=== PATIENT | female | born 1955 | race Caucasian/White ===

== ENCOUNTER 2016-09-07 12:11 | Emergency (ER) | payer OTHER ==
[~2016-09-07 12:11] MED LIST: ACETAMINOP160 MG/56 PO; ATORVASTATIN CA80 M1 PO; DILTIAZEM 24HR240 M1 PO; DILTIAZEM ER120 M1 PO; FOLIC ACID1 M1 PO; FUROSEMIDE20 M1 PO; KEPPRA500 MG/5 M IV; LEVOFLOXACIN500 M1 PO; LORAZEPAM2 MG/1 M1 IV; PREDNISONE10 M2 PO; PROTONIX40 M3 PO; UNASYN 3 GM VIAL3 GM IV
--- NOTE | 2016-09-07 12:25 | NUR ---
PT TO ED WITH FOR ? STROKE. STATES PT HAD STROKE IN MARCH 2016, WAS AT [place] AND THEN TRANSFERRED TO [facility]. PT DENIES ANY PAIN. PT STATES SHE NORMALLY WEARS NC 02 @ 2L. PT STATES "I'VE BEEN DOING OK OFF OF IT". WHEN ASKING PT HER , PT UNABLE TO COMPLETE IT. PT ALSO ASKED WHERE SHE IS, PT STATES "AT THE HOSPITAL NEAR HOME". NO FACIAL DROOP NOTED. HUBAND STATES HER STROKE WAS LEFT SIDED IN MARCH. PT TAKEN TO ROOM 22 VIA W/C.
--- NOTE | 2016-09-07 12:30 | NUR ---
THIS RN TO BEDSIDE WITH JESSICA ESTRADA. PT NOTED TO HAVE BLANK STARE AND NOT VERBALLY RESPONDING TO PROVIDER AT THIS TIME. PT HAD WITNESSED 30 SECOND SEIZURE. PT RESPONDING VERBALLY TO COMMANDS AFTER SEIZURE ENDED AND STATES "I FEEL BETTER NOW." DR. SAMUEL AT BEDSIDE FOR EVAL AT THIS TIME.
--- NOTE | 2016-09-07 12:35 | ED GENERAL ADULT ---
History of Present Illness General Chief Complaint: General Adult Stated Complaint: LOW O2, STROKE?? PER Source: patient, family, old records Exam Limitations: no limitations Allergies Coded Allergies: No Known Allergies (04/03/16) Triage Note: PT TO ED WITH FOR ? STROKE. STATES PT HAD STROKE IN MARCH 2016, WAS AT [place] AND THEN TRANSFERRED TO [facility]. PT DENIES ANY PAIN. PT STATES SHE NORMALLY WEARS NC 02 @ 2L. PT STATES "I'VE BEEN DOING OK OFF OF IT". WHEN ASKING PT HER , PT UNABLE TO COMPLETE IT. PT ALSO ASKED WHERE SHE IS, PT STATES "AT THE HOSPITAL NEAR HOME". NO FACIAL DROOP NOTED. ANGEL STATES HER STROKE WAS LEFT SIDED IN MARCH. PT TAKEN TO ROOM 22 VIA W/C. Triage Nurses Notes Reviewed? yes Onset: Just prior to arrival Duration: minute(s): (30) Timing: remote history Injury Environment: DRIVING Severity: moderate No Modifying Factors: none HPI: Patient is a 60-year-old female presenting to the emergency department with chief complaint of word finding difficulties that started approximately 30-45 minutes prior to arrival. Per family member they were driving in the car and he noticed that she was having word finding difficulties. She also noticed that she started fidgeting with her left arm. She had a stroke 5 months ago, was in rehabilitation for approximately one month and has been home. He reports that she has been progressing nicely. Ambulatory with little deficits on the left side from previous stroke. Patient and family report that she has had issues with vision on the left side but reports that it's been improving. Patient denying any malaise or weakness. Patient denying any symptoms at all. Denies any trouble breathing chest pain or palpitations. No change in medications. They have been weaning her off her seizure medications, only on Her now. She had seizures after the stroke 5 months ago. Denies any abdominal pain. (GAVIOTA ISAAC) Vital Signs & Intake/Output Vital Signs & Intake/Output Vital Signs Date Time Temp Pulse Resp B/P Pulse O2 O2 Flow FiO2 Ox Delivery Rate 09/07 1541 93 18 182/84 92 09/07 1351 95 Room Air Room Air 09/07 1315 82 18 167/90 97 Room Air 09/07 1250 96 18 155/77 95 Room Air 09/07 1220 97.1 70 20 144/80 95 Room Air Reconcile Medications Atorvastatin Calcium 80 MG TABLET 80 MG PO 1700 ischemic stroke via OG tube Levetiracetam 1,000 MG TABLET 1 TAB PO BID SEIZURES (Reported) Pantoprazole Sodium (Protonix) 40 MG TABLET. 40 MG PO DAILY GI prophylaxis (FRITZ MAE DO) Past History Travel History Traveled to [place] past 21 day No Medical History Any Pertinent Medical History? see below for history Neurological: CVA (with right-sided weakness), seizure EENT: NONE Cardiovascular: hypertension Respiratory: COPD, pneumonia Gastrointestinal: NONE Hepatic: NONE Renal: NONE Musculoskeletal: NONE Psychiatric: H/O ALCOHOL ABUSE Endocrine: NONE History of MRSA: No History of VRE: No History of CDIFF: No Influenza Vaccine: 03/18/16 Surgical History Surgical History: non-contributory Psychosocial History Who do you live with Spouse Services at Home Oxygen What is your primary language Scottish Tobacco Use: Quit >30 days ago ETOH Use: denies use Illicit Drug Use: denies illicit drug use Family History Family History, If Any: grandmother (maternal grand mother: lung cancer). Relation not specified for: FH: lung cancer Hx Contributory? Yes (GAVIOTA ISAAC) Review of Systems Review of Systems Constitutional: Reports: no symptoms. Comments Review of systems: See HPI, All other systems negative. Constitutional, no chills fever or weight loss HEENT: no sore throat no congestion Cardiovascular: No chest pain ,palpitation , orthopnea or ankle swelling Skin, no jaundice no rashes Respiratory: No dyspnea cough sputum or hemoptysis GI: No nausea no vomiting : No dysuria No hematuria Muscle skeletal: no back pain, no neck pain, Neurologic: No increased numbness Psych: No stress anxiety or depression,. Heme/endocrine: No bruising no bleeding no polyuria or polydipsia Immunology: No splenectomy or history of AIDS (GAVIOTA ISAAC) Physical Exam Physical Exam General Appearance: well developed/nourished, no apparent distress, alert, awake , comfortable, AVOIDING USE OF LEFT SIDE. Comments: Well-developed well-nourished person in no acute distress HEENT: Extraocular eye movement exam is somewhat limited as patient cannot follow commands well, moves her head. Pupils equally round and reactive to light and accommodation. Nose is atraumatic. External auditory canal and Tympanic membranes clear. Pharynx normal. No swelling or edema. Left-sided facial droop present. Difficulty sticking out her tongue. Neck: Supple, no lymphadenopathy Back: Nontender Cardiovascular: Regular rate and rhythms no murmurs rubs or gallops, normal JVP Respiratory: Chest nontender. No respiratory distress.breath sounds clear to auscultation bilaterally Abdomen: Soft, nontender nondistended, no appreciable organomegaly. Normal bowel sounds. No ascites and no rebound or guarding Rectal: Nontender, guaiac-negative, brown stool. Extremity: Nonpitting pitting edema in the lower shins bilaterally, discoloration of bluish purple color to larks and is bilaterally, no calf tenderness to palpation, normal and equal pulses. Neuro: Alert oriented x3, motor and sensory deficits noted on the left upper extremity, left side of the face. Left-sided facial droop present. Able to lift left leg with some weakness as it hits the bed after a few seconds. Skin: No appreciable rash on exposed skin, skin is warm and dry. Psych: Mood and affect is normal, memory and judgment is normal. Core Measures ACS in differential dx? Yes CVA/TIA Diagnosis: Yes Severe Sepsis Present: No Septic Shock Present: No (SEAN LOPEZ,GAVIOTA) Progress Differential Diagnoses I considered the following diagnoses in my evaluation of the patient: CVA, TIA, dehydration, electrolyte abnormality, UTI, pneumonia, hypoglycemia, hyperglycemia Plan of Care: Orders Procedure Date/time Status Nothing by Mouth 09/07 D Active Admit to inpatient 09/07 1521 Active Vital Signs 09/07 1521 Active Code Status 09/07 1521 Active Patient Data 09/07 1444 Active Intake & Output 09/07 1351 Active Telemetry/Heavy Threader 09/07 1237 Active FingerStick- Glucose 09/07 1237 Active NIH Stroke Scale 09/07 1230 Active TROPONIN LEVEL 09/07 1230 Complete PARTIAL THROMBOPLASTIN TIME 09/07 1230 Complete PROTHROMBIN TIME 09/07 1230 Complete COMPREHENSIVE METABOLIC PANEL 09/07 1230 Complete CBC WITHOUT DIFFERENTIAL 09/07 1230 Complete EKG 09/07 1230 Active Laboratory Tests 09/07/16 1612: CBC w Diff NO MAN DIFF REQ, RBC 4.12 L, MCV 94.4, MCH 31.1 H, RDW 11.9, MPV 8.8, Gran % 69.8, Lymphocytes % 24.0, Monocytes % 5.0, Eosinophils % 1.0, Basophils % 0.2, Absolute Granulocytes 4.9, Absolute Lymphocytes 1.7, Absolute Monocytes 0.4, Absolute Eosinophils 0.1, Absolute Basophils 0, PUBS MCHC 33.0 09/07/16 1308: Anion Gap 14, Estimated GFR > 60, BUN/Creatinine Ratio 23.8, Glucose 108 H, Calcium 10.3 H, Total Bilirubin 0.7, AST 26, ALT 35, Alkaline Phosphatase 107, Troponin I < 0.01, Total Protein 7.4, Albumin 4.4, Globulin 3.0, Albumin/ Globulin Ratio 1.5, PT 11.3, INR 1.08, APTT 26 Diagnostic Imaging: Viewed by Me: Radiology Read, CT Scan. Discussed w/RAD: Radiology Read, CT Scan. Radiology Impression: PATIENT: TAE GREEN PRESENT AGE: 60 PATIENT ACCOUNT NO: [id number] : 56 LOCATION: [facility] ORDERING PHYSICIAN: GAVIOTA LOPEZ SERVICE DATE: 09/07/16 EXAM TYPE: CAT - CT HEAD WO IV CONTRAST EXAMINATION: CT HEAD WITHOUT CONTRAST CLINICAL INFORMATION: Deficits. Rule out CVA. COMPARISON: 04/03/2016. TECHNIQUE: Contiguous axial imaging was performed from the skull base to vertex without intravenous contrast. DLP: 601 mGy-cm. FINDINGS: There is new hypoattenuation with loss of caicedo to white matter differentiation involving the high right parietal lobe. Additional hypoattenuation along the right frontal lobe may be artifactual. No evidence of acute intracranial hemorrhage. No abnormal mass effect or midline shift is seen. No extra-axial fluid collections are identified. No dense vessel sign. No hydrocephalus. Proportional prominence of the ventricles and sulcal spaces is consistent with mild volume loss. Patchy periventricular and deep white matter hypoattenuation is consistent with moderate small vessel ischemic changes. Chronic right caudate head lacunar infarct with ex vacuo dilatation of the right lateral ventricle frontal horn. The osseous structures and soft tissues are normal. The mastoid air cells and visualized portions of the paranasal sinuses are well aerated. IMPRESSION: New loss of caicedo to white matter differentiation at the high right parietal lobe suspicious for an infarct. Underlying moderate small vessel ischemic changes with areas of chronic lacunar infarcts. Hypoattenuation along the right frontal lobe anteriorly may be artifactual. This critical result was discussed with Dr. Mae by telephone at 09/07/2016 1:05 PM and it was ascertained that the content and urgency of the report was understood at the time of direct communication. CXR Impression: PATIENT: TAE GREEN PRESENT AGE: 60 PATIENT ACCOUNT NO: [id number] : 56 LOCATION: [facility] ORDERING PHYSICIAN: GAVIOTA LOPEZ SERVICE DATE: 09/07/16 EXAM TYPE: RAD - XRY-PORTABLE CHEST XRAY EXAMINATION: XR PORTABLE CHEST CLINICAL INFORMATION: Cardiomegaly COMPARISON: 04/04/2016 TECHNIQUE: Portable AP 80 degree upright view of the chest was obtained. FINDINGS: Since the previous study, patient has been extubated. There is mild cardiac enlargement but no evidence of CHF. Aorta is ectatic. No infiltrates, effusions or lung masses are seen. IMPRESSION: No acute intrathoracic disease. Cardiomegaly. DICTATED BY: SOPHIE CARRANZA MD DATE/ TIME DICTATED:09/07/161328 STOCK DIGGER:COLIN DATE/TIME TRANSCRIBED: 09/07/161328 Initial ED EKG: VENTRICULAR BIGEMINY Prior EKG: changed Comments: 09/07/2016 12:42:19 PM\\arrival patient is alert and oriented 3, she does have left-sided deficits including left facial droop and left arm weakness. Unable to raise the left arm. Unable to manager competitive intelligence the left arm. This is new according to family members and that just started well I was in the exam room with the patient. According to family members patient is not on any blood thinners and never was. 09/07/2016 1:16:[address] shows acute infarct in the high right parietal area. Dr. Mae spoke with neurology who agrees that this patient is a TPA candidate. Family members and patient educated on risks and benefits of receiving TPA. They understand and are aware of potential bleeding side effects, hesitant to go through with it. Waiting to hear back from their neurologist. 09/07/2016 2:27:42 PM patient declining TPA at this time. Patient will have a PICC line placed. Given aspirin. Swallow study is unremarkable, positive gag reflex. No choking. Patient will be admitted for CVA. Aspirin administered. 09/07/2016 4:12:08 PM patient will be transferred to [facility] for potentially endarterectomy or other early intervention for CVA AT PT REQUEST. DR MAE SPOKE WITH Y AXIS. (GAVIOTA ISAAC) Differential Diagnoses I considered the following diagnoses in my evaluation of the patient: (JIMMIE LARA,FRITZ Holt) Departure Departure Time of Disposition: 1603 Disposition: OTHER GENERAL HOSPITAL (ACUTE) Condition: Stable Clinical Impression Primary Impression: Cerebrovascular accident Qualifiers: CVA mechanism: unspecified Qualified Code: I63.9 - Cerebral infarction, unspecified Referrals: ENIO MENESES MD (PCP/Family) Departure Forms: Customer Survey General Discharge Information Admission Note Spoke With: ZEN COLLINS MD Documentation of Exam: Documentation of any treatments & extenuating circumstances including Concerns Regarding Discharge (functional status, medication knowledge or non-compliance, living conditions, etc.) that warrant an admission rather than observation: Patient requiring TPA at this time. Patient will be placed on telemetry for CVA. Aspirin regimen, neurology consultation. Discharge at this time would be medically harmful. (GAVIOTA ISAAC) Departure Comments 09/07/16 3:58 pm The patient expressed a desire to go [place] has her records are there for further care. I discussed the case with Dr Epperson at [place] and he accepted the patient for transfer to [place]. He reviewed the records and informed me that the patient has a history of lymphoma and has had residual left-sided weakness. I spoke to the ER doctor at [place] and the patient is for transfer. Admission Note Documentation of Exam: Documentation of any treatments & extenuating circumstances including Concerns Regarding Discharge (functional status, medication knowledge or non-compliance, living conditions, etc.) that warrant an admission rather than observation: PA/TEAM LEADER/RESEARCH PSYCHOLOGIST Co-Sign Statement Statement: ED Attending supervision documentation- [X] I saw and evaluated the patient. I have also reviewed all the pertinent lab results and diagnostic results. I agree with the findings and the plan of care as documented in the PA's/TEAM LEADER/RESEARCH PSYCHOLOGIST's documentation. [] I have reviewed the ED Record and agree with the PA's/TEAM LEADER/RESEARCH PSYCHOLOGIST's documentation. [] Additions or exceptions (if any) to the PAs/TEAM LEADER/RESEARCH PSYCHOLOGIST's note and plan are summarized below: [] 09/07/16 2:32 PM I have seen and personally examined the patient and I agree with the PAs evaluation. I have assumed care of the patient. She is a 60-year-old female who presented with a sudden onset of severe left sided weakness and left facial droop. This happened 45 minutes prior to arrival. CT scan showed a acute infarct. I discussed with the neurologist Dr. Victoria about TPA and this was advised. I discussed the risks and benefits of TPA with the patient. She does not wish to receive the TPA at this time because of the risk of possible intracranial bleeding. She is directed to be treated with aspirin. Her left upper extremity weakness is improving. I did review the risks and benefits, multiple times both with the family and with the patient. Shared decision- making was utilized in the care of this patient. They asked that I speak with the neurologist who took care for her to [place] when she had a prior stroke. I did speak to the PA that works with Dr. Naranjo. He said he is aware of the patient's condition but is unable to make a recommendation regarding therapy at this time as he is not at the bedside. I relayed this information to the patient. (JIMMIE LARA,FRITZ Holt) Critical Care Note Critical Care Note Critical Care Time: 75-104 min (SEAN LOPEZ,GAVIOTA)
--- NOTE | 2016-09-07 12:40 | NUR ---
PT TO AND CAT SCAN VIA STRETCHER WITH NO DIFFICULTY. PT REMAINS ALERT AND ORIENTED TO PERSON AND PLACE. CONTINUED ATTEMPTS FOR IV PLACEMENT BY CHARGE NURSE GRAHAM.
--- NOTE | 2016-09-07 13:11 | CT SCAN REPORT ---
EXAMINATION: CT HEAD WITHOUT CONTRAST CLINICAL INFORMATION: Deficits. Rule out CVA. COMPARISON: 04/03/2016. TECHNIQUE: Contiguous axial imaging was performed from the skull base to vertex without intravenous contrast. DLP: 601 mGy-cm. FINDINGS: There is new hypoattenuation with loss of caicedo to white matter differentiation involving the high right parietal lobe. Additional hypoattenuation along the right frontal lobe may be artifactual. No evidence of acute intracranial hemorrhage. No abnormal mass effect or midline shift is seen. No extra-axial fluid collections are identified. No dense vessel sign. No hydrocephalus. Proportional prominence of the ventricles and sulcal spaces is consistent with mild volume loss. Patchy periventricular and deep white matter hypoattenuation is consistent with moderate small vessel ischemic changes. Chronic right caudate head lacunar infarct with ex vacuo dilatation of the right lateral ventricle frontal horn. The osseous structures and soft tissues are normal. The mastoid air cells and visualized portions of the paranasal sinuses are well aerated. IMPRESSION: New loss of caicedo to white matter differentiation at the high right parietal lobe suspicious for an infarct. Underlying moderate small vessel ischemic changes with areas of chronic lacunar infarcts. Hypoattenuation along the right frontal lobe anteriorly may be artifactual. This critical result was discussed with Dr. Rodriguez by telephone at 09/07/2016 1:05 PM and it was ascertained that the content and urgency of the report was understood at the time of direct communication.
--- NOTE | 2016-09-07 13:12 | NUR ---
BLUE AND SST DRAWN AND SENT
[2016-09-07 13:29] LABS: PT 11.3 SEC (9.4-12.5); PTT 26 SEC (25-37)
--- NOTE | 2016-09-07 13:33 | NUR ---
DR. SAMUEL TO BEDSIDE TO DISCUSS RESULTS AND POC.
--- NOTE | 2016-09-07 13:37 | RADIOLOGY REPORT ---
EXAMINATION: XR PORTABLE CHEST CLINICAL INFORMATION: Cardiomegaly COMPARISON: 04/04/2016 TECHNIQUE: Portable AP 80 degree upright view of the chest was obtained. FINDINGS: Since the previous study, patient has been extubated. There is mild cardiac enlargement but no evidence of CHF. Aorta is ectatic. No infiltrates, effusions or lung masses are seen. IMPRESSION: No acute intrathoracic disease. Cardiomegaly.
--- NOTE | 2016-09-07 13:47 | NUR ---
DR. SAMUEL TO BEDSIDE TO ATTEMPT PERIPHERAL IV PLACEMENT AFTER MULTIPLE IV ATTEMPTS BY MULTIPLE NURSES.
--- NOTE | 2016-09-07 14:30 | NUR ---
PT MEDICATED PER EMAR. PT HAD NO DIFFICULTY SWALLOWING MEDICATION.
[2016-09-07] MEDS ORDERED: LEVETIRACETAM1000 M1 PO (14:33)
--- NOTE | 2016-09-07 14:59 | History & Physical ---
General Information and HPI History of Present Illness: Patient is a 60-year-old female brought by to [facility] ED, with complains of stroke. She had an episode of seizure for 30 seconds and Matt in the interim, but she was not responding to any verbal commands and had blank stares. She has past medical history of stroke in March 2016. CT scan of the head -possible infarct of right parietal lobe, ADLs of chronic lacunar infarct, moderate small vessel ischemic changes Chest x-ray showed-cardiomegaly with no acute cardiopulmonary changes Pertinent labs -serum calcium-10.3 Vital signs at the time of admission-temperature 97.7, pulse 70, respiratory 20, blood pressure 140/80, SPO2 95% on room air Past medical history - CVA with right-sided weakness Seizures Hypertension Hyperlipidemia COPD History of pneumonia History of alcohol abuse Allergies/Medications Allergies: Coded Allergies: No Known Allergies (04/03/16) Home Med list Atorvastatin Calcium 80 MG TABLET 80 MG PO 1700 ischemic stroke via OG tube Levetiracetam 1,000 MG TABLET 1 TAB PO BID SEIZURES (Reported) Pantoprazole Sodium (Protonix) 40 MG TABLET.DR 40 MG PO DAILY GI prophylaxis Past History Travel History Traveled to [place] past 21 day No Medical History Neurological: CVA (with right-sided weakness), seizure EENT: NONE Cardiovascular: hypertension Respiratory: COPD, pneumonia Gastrointestinal: NONE Hepatic: NONE Renal: NONE Musculoskeletal: NONE Psychiatric: H/O ALCOHOL ABUSE Endocrine: NONE History of MRSA: No History of VRE: No History of CDIFF: No Influenza Vaccine: 03/18/16 Surgical History Surgical History: non-contributory Past Family/Social History Family History Relations & Conditions if any grandmother (maternal grand mother: lung cancer). Relation not specified for: FH: lung cancer Psychosocial History Who Do You Live With? spouse Services at Home: Oxygen ETOH Use: denies use Illicit Drug Use: denies illicit drug use Functional Ability ADLs Independent: dressing, eating, toileting, bathing. Ambulation: independent IADLs Independent: shopping, housework, finances, food prep, telephone, transportation , medication admin. Core Measures/Miscellaneous Severe Sepsis Severe Sepsis Present: No BC x2: Yes Lactic Acid x2: Yes IV ABX Broad Spectrum: Yes Septic Shock Septic Shock Present: No
--- NOTE | 2016-09-07 15:03 | NUR ---
HOUSE STAFF TO BEDSIDE FOR EVAL.
--- NOTE | 2016-09-07 15:38 | NUR ---
PT REQUESTING TO BE TRANSFERRED TO [facility]. Y ACCESS CALLED BY ED TEAM FOR ER TO ER TRANSFER.
[2016-09-07 15:41] VITALS: BP 182/84
--- NOTE | 2016-09-07 16:00 | NUR ---
[facility] BOOKED FOR TRANSPORT TO [facility]
--- NOTE | 2016-09-07 16:09 | NUR ---
PT NOT TO GO TO IR FOR FLUROSCOPY GUIDED CENTRAL LINE PLACEMENT D/T TRANSFER. IR UPDATED ON POC.
--- NOTE | 2016-09-07 16:16 | NUR ---
PT REQUESTING COMMODE BUT UNABLE TO TRANSFER D/T LEFT SIDED WEAKNESS.
--- NOTE | 2016-09-07 16:19 | NUR ---
DR. SAMUEL TO BEDSIDE TO DISCUSS RESULTS AND POC. KENROY LAINEZ WAS ABLE TO SEND LAV TOP AND ESTABLISH IV #22 TO LEFT HAND.
--- NOTE | 2016-09-07 16:28 | NUR ---
REPORT GIVEN TO [facility]. PT TRANSFERRED WITH APPROPRIATE PAPERWORK AT THIS TIME.
[2016-09-07 16:39] LABS: ABSOLUTE BASOPHIL COUNT 0 /CUMM (0.0-0.2); ABSOLUTE EOSINOPHIL COUNT 0.1 /CUMM (0.0-0.7); ABSOLUTE GRANULOCYTE CT 4.9 /CUMM (1.4-6.5); ABSOLUTE LYMPH COUNT 1.7 /CUMM (1.2-3.4); ABSOLUTE MONOCYTE COUNT 0.4 /CUMM (0.10-0.60); BASOPHIL % 0.2 % (0.0-2.0); GRANULOCYTE % 69.8 % (42.2-75.2); HEMATOCRIT 38.9 % (37-47); MEAN CORPUSCULAR HGB 31.1 PG (27.0-31.0); MEAN CORPUSCULAR VOLUME 94.4 FL (81.0-99.0); MEAN PLATELET VOLUME 8.8 FL (7.4-10.4); PLATELET COUNT 146 /CUMM (130-400); RBC DISTRIBUTION WIDTH 11.9 % (11.5-14.5); RED BLOOD CELL CT 4.12 /CUMM (4.20-5.40); WHITE BLOOD CELL COUNT 7.1 /CUMM (4.8-10.8)
--- NOTE | 2016-09-07 16:51 | Cons- Neurology ---
General Information and HPI Consulting Request Date of Consult: 09/07/16 Requested By: ZEN COLLINS MD Reason for Consult: New left sided weakness Source of Information: patient Exam Limitations: poor historian History of Present Illness: This is a pleasant 60 year old woman who presented today to the hospital with new onset speech difficulties and left sided weakness. She was in the car with her when he looked at her and felt she did not look good and brought her to the hospital. 45 minutes in they were in the ER. Dr. Rodriguez noted some speech difficulties, left facial and left arm weakness. Since she had a stroke back in March we had considered TPA. Her BP was elevated. However the patient refused it. About an hour later she was noted to have developed left leg rhythmic tremor. However, at no point was there a full blown GTC. On further questioning the patient admits to having had a stroke back in March that was documented with an MRI brain at [place]. She had a similar presentation at the time and was in [facility] ICU for a while. She later developed seizures. She had multiple seizures involving the left side. She was placed on 3 anti-convulsants during that admission. She then went to rehab and had done well reporting that most of her "stroke" deficits resolved. She has not had a seizure since. Her Neurologist Dr. Naranjo has been weaning her off anti-epileptics and she is now only on Keppra. Per Dr. Rodriguez we had also unveiled that she is being seen for Lymphoma. Of note is that she is on no preventative medications for stroke coming out of the admission at [place]. She notes that her stroke workup was "negative". Allergies/Medications Allergies: Coded Allergies: No Known Allergies (04/03/16) Home Med List: Atorvastatin Calcium 80 MG TABLET 80 MG PO 1700 ischemic stroke via OG tube Levetiracetam 1,000 MG TABLET 1 TAB PO BID SEIZURES (Reported) Pantoprazole Sodium (Protonix) 40 MG TABLET. 40 MG PO DAILY GI prophylaxis Current Medications: Current Medications Sig/Berny Start time Last Medication Dose Route Stop Time Status Admin Aspirin 325 MG ONCE ONE 09/07 1430 DC 09/07 PO 09/07 1431 1430 Aspirin 0 .STK-MED ONE 09/07 1424 DC PO Ceftriaxone Sodium 0 .STK-MED ONE 09/07 1636 DC .ROUTE Review of Systems Review of Systems: No other symptoms, as per HPI. Past History Travel History Traveled to [place] past 21 day No Medical History Neurological: CVA (with right-sided weakness), seizure EENT: NONE Cardiovascular: hypertension Respiratory: COPD, pneumonia Gastrointestinal: NONE Hepatic: NONE Renal: NONE Musculoskeletal: NONE Psychiatric: H/O ALCOHOL ABUSE Endocrine: NONE Cancer(s): non-hodgkin lymphoma Surgical History Surgical History: non-contributory Family History Relations & Conditions If Any: grandmother (maternal grand mother: lung cancer). Relation not specified for: FH: lung cancer Psychosocial History Who Do You Live With? spouse Services at Home: Oxygen ETOH Use: denies use Illicit Drug Use: denies illicit drug use Functional Ability ADLs Independent: dressing, eating, toileting, bathing. Ambulation: independent IADLs Independent: shopping, housework, finances, food prep, telephone, transportation , medication admin. Exam & Diagnostic Data Vital Signs and I&O Vital Signs Date Time Temp Pulse Resp B/P Pulse O2 O2 Flow FiO2 Ox Delivery Rate 09/07 1541 93 18 182/84 92 09/07 1351 95 Room Air Room Air 09/07 1315 82 18 167/90 97 Room Air 09/07 1250 96 18 155/77 95 Room Air 09/07 1220 97.1 70 20 144/80 95 Room Air Physical Exam: Alert and oriented x3. Obese. Mild expressive problems but most fluent. Comprehends. Has a hard time crossing the midline on left gaze. Mild left facial droop. Left arm weakness 2/5 proximally to distal. Left leg 3/5 proximally. No abnormal movements noted. Toe upgoing on left. FNF normal on right. Reflexes hypoattenuated. Gait deferred due to weakness. Left Homonymous Hemianopsia. Last 48 Hours of Lab Results: Laboratory Tests 09/07 09/07 1612 1308 Chemistry Sodium (137 - 145 mmol/L) 136 L Potassium (3.5 - 5.1 mmol/L) 4.2 Chloride (98 - 107 mmol/L) 98 Carbon Dioxide (22 - 30 mmol/L) 24 Anion Gap (5 - 16) 14 BUN (7 - 17 mg/dL) 19 H Creatinine (0.5 - 1.0 mg/dL) 0.8 Estimated GFR (>60 ml/min) > 60 BUN/Creatinine Ratio (7 - 25 %) 23.8 Glucose (65 - 99 mg/dL) 108 H Calcium (8.4 - 10.2 mg/dL) 10.3 H Total Bilirubin (0.2 - 1.3 mg/dL) 0.7 AST (14 - 36 U/L) 26 ALT (9 - 52 U/L) 35 Alkaline Phosphatase (<127 U/L) 107 Troponin I (< 0.11 ng/ml) < 0.01 Total Protein (6.3 - 8.2 g/dL) 7.4 Albumin (3.5 - 5.0 g/dL) 4.4 Globulin (1.9 - 4.2 gm/dL) 3.0 Albumin/Globulin Ratio (1.1 - 2.2 %) 1.5 Coagulation PT (9.4 - 12.5 SEC) 11.3 INR (0.90 - 1.19) 1.08 APTT (25 - 37 SEC) 26 Hematology CBC w Diff NO MAN DIFF REQ WBC (4.8 - 10.8 /CUMM) 7.1 RBC (4.20 - 5.40 /CUMM) 4.12 L Hgb (12.0 - 16.0 G/DL) 12.9 Hct (37 - 47 %) 38.9 MCV (81.0 - 99.0 FL) 94.4 MCH (27.0 - 31.0 PG) 31.1 H RDW (11.5 - 14.5 %) 11.9 Plt Count (130 - 400 /CUMM) 146 MPV (7.4 - 10.4 FL) 8.8 Gran % (42.2 - 75.2 %) 69.8 Lymphocytes % (20.5 - 51.1 %) 24.0 Monocytes % (1.7 - 9.3 %) 5.0 Eosinophils % (0 - 5 %) 1.0 Basophils % (0.0 - 2.0 %) 0.2 Absolute Granulocytes (1.4 - 6.5 /CUMM) 4.9 Absolute Lymphocytes (1.2 - 3.4 /CUMM) 1.7 Absolute Monocytes (0.10 - 0.60 /CUMM) 0.4 Absolute Eosinophils (0.0 - 0.7 /CUMM) 0.1 Absolute Basophils (0.0 - 0.2 /CUMM) 0 PUBS MCHC (33.0 - 37.0 G/DL) 33.0 Imaging/Other Studies: FINDINGS: There is new hypoattenuation with loss of caicedo to white matter differentiation involving the high right parietal lobe. Additional hypoattenuation along the right frontal lobe may be artifactual. No evidence of acute intracranial hemorrhage. No abnormal mass effect or midline shift is seen. No extra-axial fluid collections are identified. No dense vessel sign. No hydrocephalus. Proportional prominence of the ventricles and sulcal spaces is consistent with mild volume loss. Patchy periventricular and deep white matter hypoattenuation is consistent with moderate small vessel ischemic changes. Chronic right caudate head lacunar infarct with ex vacuo dilatation of the right lateral ventricle frontal horn. The osseous structures and soft tissues are normal. The mastoid air cells and visualized portions of the paranasal sinuses are well aerated. Assessment/Plan Assessment: 60 year old woman presenting with left sided weakness followed later by tremoring of the left leg. While it is possible she did have a new stroke, the story of her previous stroke is odd, in that she left the hospital with no preventative medications. It is not clear if she truly had infarcts in March or possible [employer] lymphoma triggering seizures? It is also possible that what is seen on CT today is indicative of a prior embolic stroke and that today she had a breakthrough seizure followed by Bobo's paralysis. In anycase without further MRI brain and EEG it would be hard to say conclusively at this time. Recommendations: 1. The patient is being transferred to [place] for further studies. Consult Acknowledgment - Thank you for your consult request.
== END 2016-09-07 16:28 | disposition short-term general hospital (02) ==
LOC: ERH 12:11 → ERHI 15:21 → CANBEDREQ 16:00 → ERH 16:28 → ERHI 16:37
PROVIDERS: Physician Assistant
DX: I63.9 Cerebral infarction, unspecified (principal)
CPT/HCPCS: ERO; 93005; 93010; J0696